=== PATIENT | female | born 1980 | race Two or more races ===

== ENCOUNTER 2025-02-20 11:17 | Emergency (ER) | payer MEDICAID, OTHER ==
[~2025-02-20] VITALS: Ht 149.9 cm; Wt 61.0 kg
[2025-02-20 11:32] VITALS: O2SAT 100
[2025-02-20] MEDS: CEFTRIAXONE SODIUM 500MG VIAL IM ONE (12:39)
[2025-02-20] MEDS ORDERED: CEPH500C2 MT (12:42)
[2025-02-20 13:21] VITALS: BP 112/56; PULSE 77; RESP 18; TEMP 37; O2SAT 100
== END 2025-02-20 13:22 | disposition home or self-care (01) ==
LOC: ER 11:17
DX: N39.0 Urinary tract infection, site not specified (principal); Z11.3 Encounter for screening for infections with a predominantly sexual mode of transmission
CPT/HCPCS: 99283; 81025; 96372; J0696

== ENCOUNTER 2025-02-23 16:29 | Emergency (ER) | payer MEDICAID ==
[~2025-02-23] VITALS: Ht 165.1 cm; Wt 78.0 kg
[~2025-02-23 16:29] MED LIST: CEPH500C2 MT
[2025-02-23 16:46] VITALS: TEMP 37.1; O2SAT 100
[2025-02-23] MEDS ORDERED: PERM60CR20 TP (17:19)
[2025-02-23 17:35] VITALS: BP 137/65; PULSE 83; RESP 15; O2SAT 99
== END 2025-02-23 17:36 | disposition home or self-care (01) ==
LOC: ER 16:29
DX: B86 Scabies (principal); Z20.7 Contact with and (suspected) exposure to pediculosis, acariasis and other infestations; Z79.2 Long term (current) use of antibiotics
CPT/HCPCS: 99282

== ENCOUNTER 2025-03-01 15:22 | Emergency (ER) | payer MEDICAID ==
[~2025-03-01] VITALS: Ht 162.6 cm; Wt 75.0 kg
[~2025-03-01 15:22] MED LIST changes: +PERM60CR20 TP
[2025-03-01 15:54] VITALS: O2SAT 100
[2025-03-01 17:02] LABS: BASOPHILS % 1.0 % (0.0-2.0); EOSINOPHILS % 3.2 % (0.0-5.0); HEMATOCRIT. 36.8 % (36.0-48.0); HEMOGLOBIN. 12.4 g/dL (12.0-16.0); LYMPHOCYTES % 37.7 % (20.0-50.0); MEAN PLATELET VOLUME 9.5 fl (7.4-10.4); MONOCYTES % 5.2 % (2.0-8.0); NEUTROPHILS % 52.9 % (40.0-76.0); PLATELET 250 x1000/uL (130-400); RED BLOOD CELL COUNT 3.91 mill/uL (4.2-5.4); RED CELL DISTRIBUTION WIDTH 12.9 % (11.6-14.6)
[2025-03-01 17:16] LABS: CREATININE 0.9 mg/dL (0.6-1.0); UREA NITROGEN BLOOD 10 mg/dL (9-23)
[2025-03-01] MEDS ORDERED: IBUP-2030 MT (18:58)
[2025-03-01] MEDS: IBUPROFEN 800MG TABLET PO ONE (19:30)
[2025-03-01 19:31] VITALS: BP 132/78; PULSE 72; RESP 16; TEMP 36.8; O2SAT 100
== END 2025-03-01 19:33 | disposition home or self-care (01) ==
LOC: ER 15:22
DX: J06.9 Acute upper respiratory infection, unspecified (principal); B97.89 Other viral agents as the cause of diseases classified elsewhere
CPT/HCPCS: 36415; 71045; 80048; 85025; 99284